=== PATIENT | female | born 1945 | race Caucasian/White ===

== ENCOUNTER 2019-07-12 13:10 | Day surgery (SDC) | payer OTHER ==
[2019-07-11 12:46] VITALS: BMI 25.4
[2019-07-12] MEDS ORDERED: MINERAL OIL 25 ML OIL ONE (14:04)
[2019-07-12] MEDS ORDERED: MIDAZOLAM HCL 2 MG/2 ML SINGLE DOSE VIAL ONE (15:08)
[2019-07-12] MEDS ORDERED: ceFAZolin SODIUM 1 GM VIAL IVPB ONE (15:40)
[2019-07-12] MEDS ORDERED: EPHEDRINE SULFATE/0.9% NACL/PF 50 MG/10 ML SYRINGE NR ONE (15:43)
[2019-07-12] MEDS ORDERED: LIDO 2%/EPI 1:200000 PRESRVFRE (20 ML SDVIAL) PNB ONE (15:45)
[2019-07-12] MEDS ORDERED: LIDOCAINE HCL 1% EPINEPHRINE 1:200,000 30 ML VIAL (PF) ONE (16:38)
[2019-07-12] MEDS ORDERED: SUCCINYLCHOLINE CHLORIDE 200 MG/10 ML SYRINGE ONE (16:50)
[2019-07-12] MEDS ORDERED: PROPOFOL 20 ML ONE (16:51)
[2019-07-12] MEDS ORDERED: NITROGLYCERIN 2% OINTMENT - 1GM PACKET TD ONE (17:43)
[2019-07-12] MEDS ORDERED: LIDOCAINE HCL 2% JELLY (5 ML/TUBE) ONE (18:04)
[2019-07-12] MEDS ORDERED: ceFAZolin SODIUM 1 GM VIAL ONE ×2 (18:04)
[2019-07-12] MEDS ORDERED: LIDOCAINE HCL/PF 2% SDV 5ML VIAL ONE ×2 (18:04→18:06)
[2019-07-12] MEDS ORDERED: BACITRACIN 15 GM TUBE TOPICAL OINTMENT ONE (18:07)
[2019-07-12] MEDS ORDERED: oxyCODONE HCL 5 MG TABLET PO PRN (18:56)
[2019-07-12] MEDS ORDERED: ONDANSETRON 4 MG/2 ML VIAL IVPB PRN (18:56)
--- NOTE | 2019-07-12 19:00 | OP ---
Operative Note - Note: Operative Date: 07/12/19 Pre-Operative Diagnosis: melanoma right cheek Operation: right cheek flap reconstruction Findings: above Post-Operative Diagnosis: Same as Pre-op Surgeon: Steven Hayden Anesthesia: General Operative Report Dictated: Yes
[2019-07-12] MEDS: LACTATED RINGERS SOLUTION 1,000 ML IV SCH (19:15)
[2019-07-12] MEDS: CEFAZOLIN 1 GM/D5W 1 GM/50 ML BAG IVPB SCH (21:27)
[2019-07-12] MEDS: MORPHINE SULFATE 2 MG/ML VIAL IVPUSH PRN (21:27)
[2019-07-12] MEDS ORDERED: ATORVASTATIN CA 20 MG TABLET (FP) PO SCH (22:00)
[2019-07-13] MEDS: CEFAZOLIN 1 GM/D5W 1 GM/50 ML BAG IVPB SCH ×2 (02:08→08:32)
[2019-07-13] MEDS: MORPHINE SULFATE 2 MG/ML VIAL IVPUSH PRN ×2 (02:39→07:18)
[2019-07-13 06:57] VITALS: BP 131/78; PULSE 77; TEMP 98
[2019-07-13] MEDS: LACTATED RINGERS SOLUTION 1,000 ML IV SCH (07:19)
--- NOTE | 2019-07-13 09:39 | PN ---
Progress Note (short form) - Note Progress Note: All tissues viable. [place] drain removed. Dressings changed. All nerve function intact VNS for bacitracin dressing changes to the anterior exposed sutures daily. Leave head dressing. f/u antonieta one week
--- NOTE | 2019-07-13 15:09 | OP ---
DATE OF OPERATION: 07/12/2019 PROCEDURES: 1. Right cheek [place] rotation advancement flap. 2. Excision of ulcer from wide local excision of malignant melanoma to right cheek. 3. Secondary temporal scalp flap. Reconstruction of superior donor site from cheek flap reconstruction. 4. Spit-thickness skin graft from the right thigh to the right periarticular donor site from the cheek flap. 5. Lateral canthopexy to right lower eyelid. ATTENDING SURGEON: Steven Hayden MD CAFETERIA ASSISTANT: There were no assistants. ANESTHESIA: General endotracheal anesthesia. DESCRIPTION OF PROCEDURE: Patient brought to the operating room and placed in a supine position. Position was carefully checked by surgical and anesthesia teams. The patient is carefully padded. She is given a gram of Ancef preoperatively. Off the field, the proposed operative sites are injected with local anesthetic. The local anesthetic used is 1% lidocaine with 1:200,000 epinephrine to the perioperative tissues. Patient was then prepped and draped in a standard surgical fashion. A time-out is called. Patient, procedure, site, sides are verified. At this point, the ulcer is excised in its entirety. The base is curetted, and the margins are excised, a 1-mm margin. Flap is then elevated in a facelift plane using facelift technique, and the flap is mobilized to its preauricular pivot point and then transposed into the defect. An inferior dogear is excised parallel with the nasolabial fold. Flap is inset with a series of interrupted, buried, deep dermal 4-0 Monocryl sutures followed by a running 6-0 nylon suture. Prior to insetting the superior border of the flap, a right lateral canthopexy is performed with a lateral [place] incision. A 5-0 Vicryl suture is used to pexy the lateral [place] ligamentous tissues to the inner portion of the orbital rim periosteum. That incision is closed with a series of interrupted 6-0 nylon suture. The superior edge of the flap is trimmed to conform and then inset with a running 6-0 nylon suture. The superior aspect of the donor site is able to be closed primarily; however, a superior posterior segment requires a secondary scalp flap, which is elevated superficial to the temporalis fascia. It is back cut into the scalp and rotated into this secondary donor site defect. The donor site from this secondary scalp flap is closed primarily with interrupted cherie. The flap is then inset with a series of interrupted, buried, deep dermal 4-0 Monocryl sutures followed by a combination of cherie and 4-0 nylon suture. This then leaves a residual defect, which is preauricular measuring 2 cm in width and 4 cm in height that cannot be closed primarily. A 1/4-inch [place] drain is brought out through the inferior most aspect at its flap just at its pivot point inferior to the ear lobe and secured with a 4-0 nylon suture. Split-thickness skin graft is harvested with a Araseli dermatome on the thigh at inch. The donor site for the skin graft is dressed with a Xeroform, Telfa, ABD, and Hypafix tape. The graft is pie crusted. It is secured to the borders of the defect with a running 4-0 nylon suture. A 4-0 nylon tie over Xeroform bacitracin bolster is then applied. A facelift head dressing is applied [place] style. Nitroglycerin past is placed to the distal apex of the flap. Patient is awoken from anesthesia having tolerated procedure well. Transferred to recovery without complication. Silvestre [id number]
[2019-07-14] MEDS ORDERED: PANTOPRAZOLE 40 MG TABLET (FP) PO SCH (10:00)
== END 2019-07-13 13:02 | disposition home or self-care (01) ==
LOC: JASU-SURG 13:10 → JASUSAT 13:10 → J6S 20:23 → JASUSAT 07-13 13:02
PROVIDERS: ATTEND Plastic Surgery
PROC: 0HR1X74 Replacement of Face Skin with Autologous Tissue Substitute, Partial Thickness, External Approach (ICD-10-PCS; 2019-07-12)
PROC: 0HBHXZZ Excision of Right Upper Leg Skin, External Approach (ICD-10-PCS; 2019-07-12)
PROC: 0HX0XZZ Transfer Scalp Skin, External Approach (ICD-10-PCS; 2019-07-12)
PROC: 08SQ0ZZ Reposition Right Lower Eyelid, Open Approach (ICD-10-PCS; 2019-07-12)
PROC: 0JX10ZC Transfer Face Subcutaneous Tissue and Fascia with Skin, Subcutaneous Tissue and Fascia, Open Approach (ICD-10-PCS; principal; 2019-07-12 15:00)
DX: C43.39 Malignant melanoma of other parts of face (principal); L98.491 Non-pressure chronic ulcer of skin of other sites limited to breakdown of skin; S00.201A Unspecified superficial injury of right eyelid and periocular area, initial encounter; X58.XXXA Exposure to other specified factors, initial encounter; Y93.9 Activity, unspecified; Y92.9 Unspecified place or not applicable
CPT/HCPCS: 94760